=== PATIENT | female | born 1995 | race Caucasian/White ===

== ENCOUNTER 2023-10-16 20:11 | Emergency (ER) | payer SELFPAY ==
[~2023-10-16] VITALS: Ht 154.9 cm; Wt 59.0 kg
[2023-10-16 20:20] VITALS: BP 123/78; PULSE 85; RESP 18; TEMP 98.1; O2SAT 99
[2023-10-16] MEDS: EPINEPHrine 1 MG/ML AMP IM ONE ×2 (20:39→21:51)
[2023-10-16] MEDS: NACL 0.9% 1,000 ML IV ONE (20:48)
[2023-10-16] MEDS: methylPREDNISolone SS 125 MG/2 ML VIAL IVP ONE (20:55)
[2023-10-16 21:01] VITALS: O2SAT 99
[2023-10-16] MEDS: diphenhydrAMINE 50 MG/ML VIAL IVP ONE (21:58)
[2023-10-16] MEDS: FAMOTIDINE 20 MG/2 ML VIAL IVP ONE (21:59)
[2023-10-16 22:05] VITALS: BP 128/84; PULSE 90; RESP 19; TEMP 98.3; O2SAT 99
[2023-10-16] MEDS: LORazepam 1 MG TAB PO ONE (23:01)
[2023-10-16 23:09] LABS: AMPHETAMINE, URINE POSITIVE ng/ml (NEG <=1000); BARBITURATE, URINE NEGATIVE ng/ml (NEG <=200); BENZODIAZEPINE, URINE NEGATIVE ng/mL (NEG <=200); CANNABINOID, URINE POSITIVE ng/mL (NEG <=50); COCAINE, URINE POSITIVE ng/mL (NEG <=300); OPIATE, URINE NEGATIVE ng/mL (NEG <=2000); PHENCYCLIDINE SCREEN,URINE NEGATIVE ng/mL (NEG <=25)
[2023-10-16] MEDS ORDERED: NAPR-54 PO (23:13)
== END 2023-10-16 23:20 | disposition home or self-care (01) ==
LOC: MED 20:11
DX: J02.9 Acute pharyngitis, unspecified (principal); Z79.899 Other long term (current) drug therapy
CPT/HCPCS: 70360; 80305; 81025; 96361; 96372; 96374; 96375; 99284; J0171; J1200; J2930; J3490; J7030